=== PATIENT | male | born 1970 | race Caucasian/White ===

== ENCOUNTER 2020-02-10 07:36 | Inpatient (IN) | payer SELFPAY ==
[~2020-02-10] VITALS: Ht 175.3 cm; Wt 81.6 kg
[2020-02-10] MEDS ORDERED: PANTOPRAZOLE SODIUM 40 MG VIAL IV ONE (08:15)
[2020-02-10] MEDS ORDERED: MORPHINE SULFATE 2 MG/1 ML DISP.SYRIN IV ONE (08:15)
[2020-02-10] MEDS ORDERED: IV NORMAL SALINE 1000 ML BAG IV ONE (08:15)
[2020-02-10] MEDS ORDERED: ONDANSETRON 4 MG/2 ML VIAL IV ONE (08:15)
[2020-02-10] MEDS ORDERED: MORPHINE SULFATE 4 MG/1 ML DISP.SYRIN ONE (08:28)
[2020-02-10] MEDS ORDERED: PANTOPRAZOLE SODIUM 40 MG VIAL ONE (08:28)
[2020-02-10] MEDS ORDERED: ONDANSETRON HCL 4 MG/5 ML UDC ORAL SOL ONE (08:29)
[2020-02-10] MEDS ORDERED: ONDANSETRON 4 MG/2 ML VIAL ONE (08:30)
[2020-02-10 08:38] LABS: BASOPHILS # (AUTO) 0.1 K/uL (0.0-8.0); BASOPHILS % (AUTO) 0.4 % (0.0-2.0); EOSINOPHILS % (AUTO) 0.1 % (0.0-7.0); HEMOGLOBIN 17.5 g/dL (12.5-16.3); LYMPHOCYTES # (AUTO) 1.5 K/uL (20.0-40.0); LYMPHOCYTES % (AUTO) 10.8 % (20.5-51.5); MONOCYTES # (AUTO) 1.2 K/uL (2.0-10.0)
--- NOTE | 2020-02-10 08:40 | NUR ---
Patient went to CT and returned without complication, iv started, labs sent, and patient given medications.
[2020-02-10 08:44] LABS: CREATININE 1.4 mg/dL (0.6-1.3); POTASSIUM 3.7 mmol/L (3.5-5.1)
[2020-02-10 08:50] LABS: BILIRUBIN,DIRECT 0.2 mg/dL (0.0-0.2); BILIRUBIN,TOTAL 1.1 mg/dL (0.2-1.0)
[2020-02-10 08:56] LABS: HEMATOCRIT 51.2 % (36.7-47.1); MEAN CORPUSCULAR HEMOGLOBIN 31.9 uug (23.8-33.4); MEAN CORPUSCULAR HGB CONC 34 g/dL (32.5-36.3); MEAN CORPUSCULAR VOLUME 93.3 fL (73.0-96.2); MONOCYTES % (AUTO) 8.8 % (0.0-11.0); NEUTROPHILS # (AUTO) 11.3 K/uL (1.8-8.9); NEUTROPHILS % (AUTO) 79.9 % (38.5-71.5); PLATELET COUNT (AUTO) 432 K/uL (152-348); RED BLOOD CELL COUNT(AUTO) 5.49 MIL/uL (4.06-5.63); WHITE BLOOD COUNT (AUTO) 14.1 K/uL (3.6-10.2)
--- NOTE | 2020-02-10 09:19 | NUR ---
DR. PAREKH TALKING TO DR. FISHER REGARDING SURGICAL CONSULT.
[2020-02-10] MEDS ORDERED: IV D5 1/2 NS 1000 ML 1,000 ML IV PRN (13:28)
[2020-02-10] MEDS ORDERED: ONDANSETRON 4 MG/2 ML VIAL IV PRN (13:30)
[2020-02-10] MEDS ORDERED: MORPHINE SULFATE 2 MG/1 ML DISP.SYRIN IV PRN (13:30)
[2020-02-10] MEDS ORDERED: Z GUARD REMEDY PASTE 57 GM TUBE TOP PRN (13:30)
[2020-02-10] MEDS ORDERED: ACETAMINOPHEN 325 MG TABLET PO PRN (13:30)
[2020-02-10] MEDS: MORPHINE SULFATE 4 MG/1 ML DISP.SYRIN IV PRN ×2 (14:37→20:24)
--- NOTE | 2020-02-10 14:54 | NUR ---
ADMISSION: Patient admitted from ER at 10:45AM for abdominal pain. Patient is AAO x 4, able to express needs. NO acute distress. Vital signs stable. IV line on left hand gauge 22 intact and patent. Patient with complains of abdominal pain and nausea. IV hydration being administered as ordered, IV Zofran and morphine given and effective. Patient on NPO statu. All other needs attended, safety measures in place and will continue with care.
[2020-02-10 15:44] VITALS: BP 130/90
--- NOTE | 2020-02-10 16:00 | NUR ---
Patient seen by Dr. Jensen, NG tube placed for suction, Patient noted with an output of 450CC green discharge. Patient stated feeling much better. In stable condition and will continue with care.
[2020-02-10] MEDS: IV D5/ 0.9% NACL 1,000 ML IV PRN (16:49)
--- NOTE | 2020-02-10 16:50 | NUR ---
IV hydration D5 1/2 NS changed from 75cc/hr to 100cc/hr x 1000L.
[2020-02-10] MEDS ORDERED: BENZOCAINE/MENTH/CETYLPYRD LOZENGE MM PRN (17:15)
--- NOTE | 2020-02-10 18:40 | NUR ---
Vitals signs stable, patient stated feeling much better NG tube intact and suctioning, with an output of 500cc. IV hydration being administered as ordered. NO c/o of N/V. Needs attended, safety measures in place, call light left at bed side, needs attended and will continue with care.
[2020-02-10 19:27] LABS: *BILIRUBIN,URIN NEGATIVE (NEGATIVE); *BLOOD, URINE 1+ (NEGATIVE); *CLARITY,URINE CLEAR (CLEAR); *COLOR,URINE DARK YELLOW (YELLOW); *KETONES,URINE NEGATIVE (NEGATIVE); *UROBILINOGEN,URINE 0.2 E.U./dl (NORMAL); LEUKOCYTE ESTERASE ,URINE NEGATIVE (NEGATIVE); NITRITE, URINE NEGATIVE (NEGATIVE); PH,URINE 5.5 (5.0-8.0); UGLUCOSE NEGATIVE (NEGATIVE)
[2020-02-10 19:30] LABS: *CREATININE,URINE 220.5 mg/dL (30-125); *URINE TOTAL PROTEIN RANDOM 90.7 mg/dL (<150/24HR)
[2020-02-10 19:43] LABS: MUCUS,URINE MODERATE /LPF (0-FEW); RBC,URINE 0-3 /HPF (0-3)
[2020-02-10 20:00] VITALS: BP 133/87
--- NOTE | 2020-02-10 23:47 | NUR ---
Madeline Mendieta has rescheduled a small bowel follow through for 1800
[2020-02-11] MEDS: MORPHINE SULFATE 4 MG/1 ML DISP.SYRIN IV PRN ×2 (02:05→06:21)
[2020-02-11 04:00] VITALS: BP 133/77
[2020-02-11] MEDS: IV D5/ 0.9% NACL 1,000 ML IV PRN ×2 (05:53→14:40)
--- NOTE | 2020-02-11 06:30 | NUR ---
Patient is reporting that he has started to pass gas.
[2020-02-11 07:09] LABS: BASOPHILS # (AUTO) 0.1 K/uL (0.0-8.0); BASOPHILS % (AUTO) 0.7 % (0.0-2.0); EOSINOPHILS # (AUTO) 0.1 K/uL (0.0-0.7); EOSINOPHILS % (AUTO) 1.7 % (0.0-7.0); LYMPHOCYTES # (AUTO) 2.9 K/uL (20.0-40.0); LYMPHOCYTES % (AUTO) 38.7 % (20.5-51.5); MEAN CORPUSCULAR HEMOGLOBIN 32.3 uug (23.8-33.4); MEAN CORPUSCULAR HGB CONC 34 g/dL (32.5-36.3); MEAN CORPUSCULAR VOLUME 94.8 fL (73.0-96.2); MONOCYTES # (AUTO) 1.3 K/uL (2.0-10.0); MONOCYTES % (AUTO) 16.5 % (0.0-11.0); NEUTROPHILS # (AUTO) 3.2 K/uL (1.8-8.9); NEUTROPHILS % (AUTO) 42.4 % (38.5-71.5); PLATELET COUNT (AUTO) 373 K/uL (152-348); RED BLOOD CELL COUNT(AUTO) 4.62 MIL/uL (4.06-5.63)
[2020-02-11 07:20] LABS: BILIRUBIN,TOTAL 0.8 mg/dL (0.2-1.0); CREATININE 1.1 mg/dL (0.6-1.3); MAGNESIUM 2.3 mg/dL (1.8-2.4); POTASSIUM 3.8 mmol/L (3.5-5.1); TOTAL PROTEIN, SERUM 7.1 g/dL (6.4-8.2)
[2020-02-11 07:22] LABS: HEMATOCRIT 43.8 % (36.7-47.1); HEMOGLOBIN 14.9 g/dL (12.5-16.3); WHITE BLOOD COUNT (AUTO) 7.6 K/uL (3.6-10.2)
[2020-02-11 07:42] LABS: THYROID STIMULATING HORMONE 1.39 mIU/mL (0.358-3.740)
--- NOTE | 2020-02-11 08:00 | NUR ---
received pt. resting in bed alert oriented x4. Pt. is on NPO diet. Pt. has NG tube on low intermittent suction it is suctioning dark green/ brown bile. pt. denies pain/ discomfort. pt. denies sob/ difficulty breathing. pt. bowel sounds are active and pt. states he is passing gas. small bowel follow through rescheduled for today at 1800. all needs met. safety measures in place. call light within reach. will continue to monitor pt.
[2020-02-11 08:16] LABS: BAND % (MANUAL) 10 % (0-10); BASOPHILS % (MANUAL) 2 % (0-2); EOSINOPHILS % (MANUAL) 2 % (0-8); LYMPHOCYTES % (MANUAL) 37 % (20-40); MONOCYTES % (MANUAL) 17 % (2-10); NEUTROPHILS % (MANUAL) 32 % (42-75)
[2020-02-11 08:32] VITALS: BP 126/84
[2020-02-11] MEDS ORDERED: DIATR MEGLU/DIATRIZOATE SODIUM 30 ML BOTTLE ONE (09:22)
[2020-02-11 15:53] VITALS: BP 120/70
--- NOTE | 2020-02-11 18:47 | NUR ---
pt. resting in bed alert oriented x4. pt. has NG tube on low intermittent suction draining dark green/ brown gastric fluid. Throughout shift pt. had 25 cc of output. pt. abdomen soft to touch and pt. is passing gas. safety measures in place. call light within reach. will endorse to pm nurse
--- NOTE | 2020-02-11 20:00 | NUR ---
Received patient awake and alert in bed, A/Ox4. No signs of acute distress noted. Denies any pain or abdominal. NGT on low intermittent suctioning. Noted with 500cc output of greenish bile. Per morning shift nurse, 25cc output on shift. Patient stated he wanted some water and that they already started on dinner tonight, checked orders and saw that he is on a clear liquid diet. Stated he tolerated dinner well, no N/V. IVF running on the left hand no s/s of infection or infiltration noted. Safety measures initiated. Bed is low and locked, call light within reach. Will continue to monitor.
[2020-02-11 20:23] VITALS: BP 108/70
[2020-02-12] MEDS: IV D5/ 0.9% NACL 1,000 ML IV PRN ×2 (00:48→11:19)
--- NOTE | 2020-02-12 01:39 | NUR ---
No new output noted. Flushed tubing and is still on low intermittent suctioning. Patient has no complaints of N/V. Tolerating water.
[2020-02-12 05:19] VITALS: BP 123/69
[2020-02-12 08:43] VITALS: BP 117/69
--- NOTE | 2020-02-12 09:12 | NUR ---
RECEIVED IN BED AWAKE RESTING IN NO ACUTE DISTRESS. INTERMITTENT SUCTION DARK GREEN GASTRICFL NOTED. NO C/O DISTRESS.VSS
[2020-02-12 09:34] LABS: BASOPHILS # (AUTO) 0.1 K/uL (0.0-8.0); BASOPHILS % (AUTO) 0.9 % (0.0-2.0); EOSINOPHILS # (AUTO) 0.2 K/uL (0.0-0.7); EOSINOPHILS % (AUTO) 2.9 % (0.0-7.0); HEMOGLOBIN 13.3 g/dL (12.5-16.3); LYMPHOCYTES # (AUTO) 2.6 K/uL (20.0-40.0); LYMPHOCYTES % (AUTO) 31.5 % (20.5-51.5); MEAN CORPUSCULAR HEMOGLOBIN 32.2 uug (23.8-33.4); MEAN CORPUSCULAR HGB CONC 34 g/dL (32.5-36.3); MEAN CORPUSCULAR VOLUME 95.1 fL (73.0-96.2); MONOCYTES # (AUTO) 0.8 K/uL (2.0-10.0); MONOCYTES % (AUTO) 9.6 % (0.0-11.0); NEUTROPHILS # (AUTO) 4.6 K/uL (1.8-8.9); NEUTROPHILS % (AUTO) 55.1 % (38.5-71.5); PLATELET COUNT (AUTO) 307 K/uL (152-348); RED BLOOD CELL COUNT(AUTO) 4.14 MIL/uL (4.06-5.63); WHITE BLOOD COUNT (AUTO) 8.4 K/uL (3.6-10.2)
[2020-02-12 09:41] LABS: HEMATOCRIT 39.4 % (36.7-47.1)
[2020-02-12 10:02] LABS: CREATININE 1.1 mg/dL (0.6-1.3); MAGNESIUM 2.2 mg/dL (1.8-2.4); PHOSPHOROUS 1.9 mg/dL (2.5-4.9); POTASSIUM 3.6 mmol/L (3.5-5.1)
[2020-02-12] MEDS ORDERED: NEUTRA PHOS PACKET PO ONE (15:15)
--- NOTE | 2020-02-12 15:31 | NUR ---
cecilia mech soft lunch no nausea /vomiting noted. no c/o gastric distress. monitor for dinner if cecilia well will go home. explained to him d/c conditions verbalized understanding.
[2020-02-12 16:03] VITALS: BP 132/77
--- NOTE | 2020-02-12 18:28 | NUR ---
[facility] [facility] [employer]. BM NOTED AND FLATUS PRESENT. NO ABD DISTRESS OR DISCOMFORT NOTED. READY FOR D/C 1900 SON IS PICKING HIM UP. VSS
[2020-02-14 13:23] LABS: ALBUMIN 3.3 g/dL (2.9-4.4); ALPHA-1-GLOBULIN 0.3 g/dL (0.0-0.4); ALPHA-2-GLOBULIN 0.8 g/dL (0.4-1.0); BETA GLOBULIN 1.2 g/dL (0.7-1.3); GLOBULIN, TOTAL 3.3 g/dL (2.2-3.9); M-SPIKE Not Observed g/dL (Not Observed)
== END 2020-02-12 19:15 | disposition home or self-care (01) | DRG 388 ==
LOC: ER 07:36 → MEDSURG3 10:20
PROVIDERS: ADMIT Nurse Practitioner Acute Care; ATTEND Nurse Practitioner Acute Care
DX: K56.50 Intestinal adhesions [bands], unspecified as to partial versus complete obstruction (principal); N17.0 Acute kidney failure with tubular necrosis; E87.1 Hypo-osmolality and hyponatremia; E86.0 Dehydration; Z90.49 Acquired absence of other specified parts of digestive tract; E88.09 Other disorders of plasma-protein metabolism, not elsewhere classified; E86.1 Hypovolemia; D72.828 Other elevated white blood cell count; D47.3 Essential (hemorrhagic) thrombocythemia; E80.6 Other disorders of bilirubin metabolism
CPT/HCPCS: 36415; 70030-TC; 74018; 83690; 83735; 83970; 84100; 84155; 84156; 84165; 84300; 84443; 85025; A4663; C9113; G0378; J2270; J2405; J3490; J7042; Q0162; Q9963